=== PATIENT | female | born 1955 | race Caucasian/White ===

== ENCOUNTER 2020-03-24 06:33 | Outpatient (CLI) | payer MEDICARE ==
[2020-03-24 19:11] LABS: SARS-CoV-2 MS2 Positive; SARS-CoV-2 N Gene Negative; SARS-CoV-2 S Gene Negative; SARS-CoV-2 by NAA Not Detected (NotDetected); SARS-CoV-2 orf1ab Negative
== END 2020-03-24 06:34 | disposition home or self-care (01) ==
LOC: LABBT 06:33
PROVIDERS: ATTEND Ophthalmology Retina Specialist
DX: H43.12 Vitreous hemorrhage, left eye (principal); Z20.828 Contact with and (suspected) exposure to other viral communicable diseases
CPT/HCPCS: 87635; U0003

== ENCOUNTER 2020-03-27 07:25 | Day surgery (SDC) | payer MEDICARE ==
[2020-03-26 09:48] VITALS: BMI 22.6
[~2020-03-27 07:25] MED LIST: EPINEPHrine 0.3 MG in Ophthalmic Irrigation Solution 500 ML IRR SCH
[2020-03-27] MEDS ORDERED: Cyclopentolate 1% Opth Drop 2 ML BOT ONE (08:22)
[2020-03-27] MEDS ORDERED: Phenylephrine 2.5% Ophth Soln 5 ML BOT ONE (08:22)
[2020-03-27] MEDS ORDERED: PROPOFOL 20 ML ONE (09:06)
[2020-03-27] MEDS ORDERED: Midazolam HCl 2 mg/2 ml Vial ONE (09:06)
[2020-03-27] MEDS ORDERED: Fentanyl 100 MCG/2 ML VIAL ONE (09:06)
[2020-03-27] MEDS ORDERED: Bupivacaine PF 0.75% SDV 10 ML ONE (11:09)
[2020-03-27] MEDS ORDERED: Lidocaine 4% PF 5 ML AMP ONE (11:09)
[2020-03-27] MEDS ORDERED: CEFAZOLIN 1 GM VIAL ONE (11:09)
[2020-03-27] MEDS ORDERED: Maxitrol 0.1% Opth Oint 3.5 GM TUBE ONE (11:09)
[2020-03-27] MEDS ORDERED: Lidocaine 1% PF 5 ML VIAL ONE (11:09)
[2020-03-27] MEDS ORDERED: Triamcinolone 40 MG/ML VIAL ONE (11:09)
--- NOTE | 2020-03-28 13:21 | OP ---
DATE OF PROCEDURE: 03/27/2020 PREOPERATIVE DIAGNOSIS: Vitreous hemorrhage. POSTOPERATIVE DIAGNOSES: Vitreous hemorrhage and retinal tear, left eye. PROCEDURES PERFORMED: Pars plana vitrectomy and membrane peel, left eye. ANESTHESIA: Local with monitored anesthesia care. DESCRIPTION OF PROCEDURE: The patient identified in the preoperative holding area. Appropriate informed consent for the planned surgical procedure on the left eye had been obtained. The patient was transported to the operative suite. Appropriate cardiopulmonary monitoring was established. Local anesthesia obtained using retrobulbar modified Van Lint lid block. The patient was prepped and draped in usual sterile manner for ophthalmic surgery of the left eye. Lid speculum was placed in the left eye. A 27-gauge trocar was placed in the conjunctiva and sclera superotemporally, inferotemporally, and supranasally. Infusion line was placed inferotemporally. Light pipe and vitreous cutter inserted to the eye. Core vitrectomy was performed. Horseshoe tear was identified superiorly and was trimmed back. Laser was placed using Endolaser delivery device around the horseshoe tear. Residual vitreous membranes were peeled. No other holes, breaks, or tears were identified. Trocars were removed and eye was noted to retain pressure well. Retrobulbar Kenalog and subconjunctival Ancef were placed. Antibiotic ointment was placed. Eye was patched and shielded. The patient was taken to the postop recovery unit in good condition having suffered no immediate preop complications. The patient was instructed to keep patch shield on. Avoid lifting or bending. Followup appointment with Dr. Stewart. Job ID: [id number]
== END 2020-03-27 10:50 | disposition home or self-care (01) ==
LOC: SDC 07:25
PROVIDERS: ATTEND Ophthalmology Retina Specialist
PROC: 08T53ZZ Resection of Left Vitreous, Percutaneous Approach (ICD-10-PCS; principal; 2020-03-27)
PROC: 08NF3ZZ Release Left Retina, Percutaneous Approach (ICD-10-PCS; 2020-03-27)
DX: H43.12 Vitreous hemorrhage, left eye (principal); H33.312 Horseshoe tear of retina without detachment, left eye; Z79.82 Long term (current) use of aspirin; Z79.899 Other long term (current) drug therapy; Z88.2 Allergy status to sulfonamides; Z88.3 Allergy status to other anti-infective agents
CPT/HCPCS: J0171; J0690; J2001; J2250; J2704; J3010; J3301; J3490

== ENCOUNTER 2020-08-18 08:40 | Outpatient (CLI) | payer MEDICARE ==
[2020-08-19 01:17] LABS: SARS-CoV-2 PCR by NAA Not Detected (NotDetected)
== END 2020-08-18 08:41 | disposition home or self-care (01) ==
LOC: LABBT 08:40
PROVIDERS: ATTEND Ophthalmology Retina Specialist
DX: Z01.812 Encounter for preprocedural laboratory examination (principal); H54.7 Unspecified visual loss; Z20.822 Contact with and (suspected) exposure to COVID-19
CPT/HCPCS: U0003; U0005; 87635

== ENCOUNTER 2020-08-21 08:25 | Day surgery (SDC) | payer MEDICARE ==
[~2020-08-21 08:25] MED LIST changes: -EPINEPHrine 0.3 MG in Ophthalmic Irrigation Solution 500 ML IRR SCH; +Fentanyl 100 MCG/2 ML VIAL ONE; +Fluorouracil 100 MG, Enoxaparin Sodium 25 MG, EPINEPHrine 0.3 MG in Ophthalmic Irrigati... IRR SCH; +Midazolam HCl 2 mg/2 ml Vial ONE
[2020-08-21] MEDS ORDERED: Cyclopentolate 1% Ophth Drops 15 ML BOT ONE (08:51)
[2020-08-21] MEDS ORDERED: Phenylephrine 2.5% Ophth Soln 5 ML BOT ONE ×2 (08:51)
[2020-08-21] MEDS ORDERED: Bupivacaine PF 0.75% SDV 10 ML ONE (09:33)
[2020-08-21] MEDS ORDERED: Lidocaine 1% PF 5 ML VIAL ONE (09:33)
[2020-08-21] MEDS ORDERED: PROPOFOL 200 MG/20 ML VIAL ONE (09:33)
[2020-08-21] MEDS ORDERED: Triamcinolone 40 MG/ML VIAL ONE (09:33)
[2020-08-21] MEDS ORDERED: Indocyanine Green 25 MG/10 ML VIAL ONE (09:33)
[2020-08-21] MEDS ORDERED: Maxitrol 0.1% Opth Oint 3.5 GM TUBE ONE (09:33)
[2020-08-21] MEDS ORDERED: Lidocaine 4% PF 5 ML AMP ONE (09:33)
[2020-08-21] MEDS ORDERED: CEFAZOLIN 1 GM VIAL ONE (09:33)
== END 2020-08-21 11:25 | disposition home or self-care (01) ==
LOC: SDC 08:25
PROVIDERS: ATTEND Ophthalmology Retina Specialist
PROC: 08T53ZZ Resection of Left Vitreous, Percutaneous Approach (ICD-10-PCS; principal; 2020-08-21)
PROC: 08NF3ZZ Release Left Retina, Percutaneous Approach (ICD-10-PCS; 2020-08-21)
DX: H35.372 Puckering of macula, left eye (principal); Z79.82 Long term (current) use of aspirin; Z79.899 Other long term (current) drug therapy; Z88.2 Allergy status to sulfonamides; Z88.8 Allergy status to other drugs, medicaments and biological substances
CPT/HCPCS: 67025; J0171; J0690; J1650; J2250; J2704; J3010; J3301; J3490; J9190